=== PATIENT | male | born 1965 | race Caucasian/White ===

== ENCOUNTER 2018-02-03 12:03 | Emergency (ER) | payer OTHER ==
[~2018-02-03] VITALS: Ht 177.8 cm; Wt 72.6 kg
[2018-02-03] MEDS ORDERED: KEFLEX500 M1 PO (14:15)
[2018-02-03] MEDS ORDERED: NORCO 5-325 TA1 EACH PO (14:15)
[2018-02-03] MEDS ORDERED: NABUMETONE 750750 M1 PO (14:15)
[2018-02-03 14:32] VITALS: BP 164/89
== END 2018-02-03 14:33 | disposition home or self-care (01) ==
LOC: M.ERS 12:03
DX: S82.492B Other fracture of shaft of left fibula, initial encounter for open fracture type I or II (principal); S61.315A Laceration without foreign body of left ring finger with damage to nail, initial encounter; W26.9XXA Contact with unspecified sharp object(s), initial encounter; Y93.89 Activity, other specified; Y92.89 Other specified places as the place of occurrence of the external cause; Y99.8 Other external cause status